=== PATIENT | female | born 1980 | race Caucasian/White ===

== ENCOUNTER 2019-03-04 22:32 | Inpatient (IN) | payer OTHER ==
[2019-03-04] MEDS ORDERED: Lactated Ringers 1000 ML Bag* 1,000 ML IV ONE (22:53)
[2019-03-04] MEDS ORDERED: Buffered Lidocaine 1% SYRIN* 1 ML/SYRINGE INTRADERM ONE (22:53)
[2019-03-04] MEDS ORDERED: Lactated Ringers 1000 ML Bag* 1,000 ML IV SCH (23:00)
--- NOTE | 2019-03-04 23:35 | HP ---
General Information - Reason for Visit , IUP@37+1, SROM@1930 - General Information Maternal Age: 38 Grav: 4 Para: 3 SAB: 0 IEA: 0 Estimated Due Date: 03/24/19 Determined By: LMP Gestational Age in Weeks/Days: 37+1 Maternal Blood Type and Rh: O Negative - Results this Serology/RPR Result: Non-Reactive Rubella Result: Immune HBsAg Result: Negative HIV Result: Negative GBS Culture Result: Negative Past Medical History Delivery History: Hx Uncomplicated Vaginal Delivery Pertinent Past Medical History: Non-Contributory Past Medical History Comment: Asthma Kidney stones ADHD Pertinent Past Surgical History: None Family History Comment: Daughter: substance use disorder, due to suicide (12/2018) - Antepartal Records Antepartal Records: Reviewed, Complicated by: - AMA (age 38); baby with cleft lip; Rh negative; +THC, adderall use Review of Systems CV Complaint: No Respiratory: Shortness of Breath: No Gastrointestinal: No Nausea/Vomiting, Normal Bowel Movement Genitourinary: Leaking Fluid, No Dysuria, No Bleeding Musculoskeletal: Contractions Neurological: No Headache, No Visual Changes Movement: Normal Exam Allergies/Adverse Reactions: Allergies penicillin G Allergy (Unknown, Verified 03/04/19 23:46) Rash BP 125/75, HR 73, RR 18, O2 98%, temp 98.2 - Measurements Height: 5 ft 6 in Weight: 162 lb Weight in lbs: 162.767771 Body Mass Index (BMI): 26.1 Pre- Weight: 120 lb - Exam Breast: Breast Exam Deferred CVA: No CVA Tenderness Extremities: No Edema Heart: Normal Rhythm/Heart Sounds HEENT: No Significant Findings Lungs: Clear Bilaterally Rectal: Rectal Exam Deferred Targeted Exam Findings Estimated Weight: 7lbs Cervical Exam: 1cm - 1.5 Effacement: 70% Station: 0 Presenting Part: Vertex Membrane Status: Questionable SROM EFM Findings - External Monitor Findings Baseline Heart Rate: 125 External Monitor Findings: Accelerations Present, No Pattern of Variable or Late Decelerations, Variability Moderate External Monitor Findings Comment: No evidence of metabolic acidemia Contractions: Irregular, 45-90 Seconds Assessment/Plan - Assessment 38yo, , IUP@37+1 GBS negative, O negative SROM, clear fluid, 1930 complicated by known unilateral cleft lip, saw [facility] Reviewed case with neonatology, okay to deliver here since pt ruptured No evidence of metabolic acidemia Irregular contractions - Obstetrical Risk Factors Risk Factors Comment: +THC, on adderall for ADHD - Plan Plan: Admit - Anticipate Vaginal Delivery Plan Comment: Admit to L&D NICU aware of pt admit, will be present for delivery given baby with unilateral cleft lip Pt undecided on pain management plan - will start IV per pt preference IV pain meds PRN overnight VE PRN Anticipate progression to active labor - Date/Time of Admission Date of Admission: 03/04/19 Time of Admission: 23:00
[2019-03-04] MEDS ORDERED: Nalbuphine* 10 MG/ML 1 ML VIAL IV PRN (23:36)
[2019-03-04] MEDS ORDERED: Promethazine INJ(RESTRICTED)* 25 MG/ML 1 ML VIAL IV PRN (23:36)
[2019-03-05 00:26] LABS: ABS Basophils 0.1 10^3/ul (0-0.2); ABS Eosinophils 0.2 10^3/ul (0-0.6); ABS Lymphocytes 3.2 10^3/ul (1.0-4.8); ABS Monocytes 1.2 10^3/ul (0-0.8); Eosinophil % 1.3 %; Hematocrit 36 % (35-47); Hemoglobin 12.4 g/dL (12.0-16.0); Lymphocyte % 27.4 %; Mean Corpuscular HGB Conc 34 g/dL (31-36); Mean Corpuscular Hemoglobin 34 pg (27-31); Mean Corpuscular Volume 100 fL (80-97); Mean Platelet Volume 8.5 fL (7.4-10.4); Platelet Count 205 10^3/uL (150-450); Red Cell Distribution Width 14 % (10-15); White Blood Count 11.6 10^3/uL (3.5-10.8)
[2019-03-05] MEDS ORDERED: Oxytocin in LR* 20 UNITS/1,000 ML BAG IVPB ONE (03:45)
[2019-03-05] MEDS ORDERED: Ibuprofen TAB* 600 MG ONE (04:00)
[2019-03-05] MEDS ORDERED: Dibucaine 1% 28.35 GM TUBE PR PRN (04:14)
[2019-03-05] MEDS ORDERED: Witch Hazel PAD* JAR TOPICAL PRN ×2 (04:14→04:23)
[2019-03-05] MEDS ORDERED: Glycerin ADULT SUPP PR PRN (04:14)
[2019-03-05] MEDS ORDERED: RHO D Immune Globulin (HUMAN)* 300 MCG = 1,500 I.U. INJ IM ONE (04:23)
--- NOTE | 2019-03-05 04:34 | PN ---
Progress Note - Progress Note Date of Service: 03/05/19 Note: Called to bedside by RN Pt feeling uncomfortable and requesting epidural VE: 3100/0, vtx Anesthesia aware. Coming from home. Start IV fluids, collect CBC, T&S
[2019-03-05] MEDS ORDERED: Lactated Ringers 1000 ML Bag* 1,000 ML IV SCH ×2 (05:00)
[2019-03-05] MEDS ORDERED: Oxytocin in LR* 20 UNITS/1,000 ML BAG IVPB SCH (05:00)
[2019-03-05] MEDS ORDERED: Simethicone TAB* 80 MG TAB.CHEW PO SCH (08:30)
[2019-03-05] MEDS ORDERED: Docusate CAP* 100 MG PO SCH (09:00)
[2019-03-05] MEDS: Amphetamine MIXED SALT TAB* 10 MG TAB PO SCH ×2 (10:03→15:34)
[2019-03-05] MEDS: Docusate CAP* 100 MG PO SCH ×3 (10:03→20:16)
[2019-03-05] MEDS: Ibuprofen TAB* 600 MG PO PRN ×2 (12:33→20:16)
--- NOTE | 2019-03-05 20:58 | PROCNOTE ---
[facility] OB: Delivery Note - Delivery A Date of : 03/05/19 Time of : 03:40 [place] Sex: Male Weight at : 6 lb 15 oz Score 1 Minute: 8 Score 5 Minutes: 9 Gestational Age in Weeks and Days at Delivery: 37 Weeks and 2 Days Delivery Method: Spontaneous Vaginal Labor: Spontaneous Details: Scheduled Reason for Section: n/a Did Patient attempt ?: N/A, No Previous Amniotic Fluid: Clear Estimated Blood Loss: 250 Anesthesia/Analgesia: IM/IV Anesthesia Comment: Roger Delivered By: Antonette Otto - Nursery Level of Nursery: Regular/Bedside - Perineum Perineal Injury: None/Intact - Events Delivery Events of Note: Pitocin Only After Delivery, Precipitous Delivery - Additional Delivery Notes Additional Delivery Notes: On 03/05, at 37+1 weeks gestation, this 38 yo female, under no anesthesia, delivered a viable male weighing 6lbs 15ounces with 's of 8 and 9 at 1 and 5 minutes. Infant with known unilateral cleft lip. SWIMMING COACH OR INSTRUCTOR present. Delivery was via , infant was placed on mom's chest, cord was cut and clamped by FOB after pulsations ceased. Cord blood was collected and sent. Spontaneous delivery of an intact placenta with 3 vessel cord followed via jasvir. Pitocin was initiated. Fundus firm with minimal bleeding; EBL 250 mL. After careful insepction of the perineum, pt was found to be intact. Infant and mom in stable condition.
[2019-03-06 06:58] LABS: ABS Basophils 0.1 10^3/ul (0-0.2); ABS Eosinophils 0.2 10^3/ul (0-0.6); ABS Lymphocytes 4.5 10^3/ul (1.0-4.8); ABS Monocytes 0.8 10^3/ul (0-0.8); ABS Neutrophils 5.2 10^3/ul (1.5-7.7); Eosinophil % 1.4 %; Hematocrit 33 % (35-47); Hemoglobin 11.8 g/dL (12.0-16.0); Lymphocyte % 41.8 %; Mean Corpuscular HGB Conc 36 g/dL (31-36); Mean Corpuscular Hemoglobin 36 pg (27-31); Mean Corpuscular Volume 100 fL (80-97); Mean Platelet Volume 8.7 fL (7.4-10.4); Nucleated Red Blood Cells % 0.1; Platelet Count 192 10^3/uL (150-450); Red Blood Count 3.31 10^6 /uL (3.70-4.87); Red Cell Distribution Width 14 % (10-15); White Blood Count 10.8 10^3/uL (3.5-10.8)
[2019-03-06] MEDS: Docusate CAP* 100 MG PO SCH ×3 (08:33→21:40)
[2019-03-06] MEDS: Amphetamine MIXED SALT TAB* 10 MG TAB PO SCH ×2 (08:43→13:37)
[2019-03-06] MEDS: Ibuprofen TAB* 600 MG PO PRN ×2 (08:43→17:54)
[2019-03-06] MEDS ORDERED: Ferrous Gluconate TAB* 324 MG TAB PO SCH (09:00)
[2019-03-06] MEDS: Acetaminophen TAB* 325 MG PO PRN ×2 (13:37→21:20)
[2019-03-07] MEDS: Ibuprofen TAB* 600 MG PO PRN ×2 (02:57→08:13)
[2019-03-07] MEDS: Amphetamine MIXED SALT TAB* 10 MG TAB PO SCH (08:13)
[2019-03-07 09:25] VITALS: BP 113/68
== END 2019-03-07 12:16 | disposition home or self-care (01) | DRG 560 ==
LOC: MCHOBOUT 22:32 → MCHOB 23:44
PROVIDERS: ADMIT Advanced Practice Midwife; ATTEND Advanced Practice Midwife
PROC: 10E0XZZ Delivery of Products of Conception, External Approach (ICD-10-PCS; principal; 2019-03-05)
PROC: 4A1HXCZ Monitoring of Products of Conception, Cardiac Rate, External Approach (ICD-10-PCS; 2019-03-05)
DX: O99.344 Other mental disorders complicating childbirth (principal); Z37.0 Single live birth; O66.3 Obstructed labor due to other abnormalities of fetus; F90.9 Attention-deficit hyperactivity disorder, unspecified type; O69.81X0 Labor and delivery complicated by cord around neck, without compression, not applicable or unspecified; O62.3 Precipitate labor; Z3A.37 37 weeks gestation of pregnancy; Z87.442 Personal history of urinary calculi; Z88.0 Allergy status to penicillin; Z67.41 Type O blood, Rh negative
CPT/HCPCS: 36415; 84112; 85025; 85461; 86850; 86870; 86880; 86900; 86901; A9270-GY; J2300; J2550; J2790